=== PATIENT | female | born 1995 | race Caucasian/White ===

== ENCOUNTER 2016-12-02 18:04 | Emergency (ER) | payer OTHER ==
[~2016-12-02] VITALS: Ht 165.1 cm; Wt 60.5 kg
[~2016-12-02 18:04] MED LIST: AMOXICILLIN 8751 TAB PO; B-121000 MCG PO; BIRTH CONTROL; DOXYCYCLINE 10100 MG PO; JOLESSA 30 MCG-1 TAB PO; MYWAY PO; NATURE'S BLE1000 MCG PO; TOPAMAX 100MG100 M1 PO; TOPAMAX200 MG PO
[2016-12-02 18:14] VITALS: BP 135/74; TEMP 98.4
[2016-12-02] MEDS ORDERED: AMITRIPTYLINE H10 M1 PO (18:23)
[2016-12-02] MEDS ORDERED: FIORICET 325 MG1 TA1 PO (18:23)
[2016-12-02 20:40] VITALS: PULSE 65
== END 2016-12-02 20:43 | disposition home or self-care (01) ==
LOC: COL.ER 18:04
DX: G43.909 Migraine, unspecified, not intractable, without status migrainosus (principal)
CPT/HCPCS: J1200; J1885; J2765; J7030

== ENCOUNTER 2016-12-21 02:38 | Emergency (ER) | payer OTHER ==
[~2016-12-21] VITALS: Ht 165.1 cm; Wt 60.0 kg
[~2016-12-21 02:38] MED LIST changes: +AMITRIPTYLINE H10 M1 PO; +FIORICET 325 MG1 TA1 PO
[2016-12-21 02:41] VITALS: TEMP 97.4
[2016-12-21] MEDS ORDERED: ULTRAM 50MG TAB50 MG PO (03:13)
[2016-12-21] MEDS ORDERED: ZOFRAN8 MG PO (03:13)
[2016-12-21 03:52] VITALS: BP 151/61; PULSE 71
== END 2016-12-21 03:52 | disposition home or self-care (01) ==
LOC: COL.ER 02:38
DX: R51 Headache (principal); J06.9 Acute upper respiratory infection, unspecified; R11.0 Nausea; G43.909 Migraine, unspecified, not intractable, without status migrainosus; B34.9 Viral infection, unspecified
CPT/HCPCS: J1885

== ENCOUNTER 2017-03-16 23:35 | Emergency (ER) | payer OTHER ==
[~2017-03-16] VITALS: Ht 165.1 cm; Wt 60.0 kg
[~2017-03-16 23:35] MED LIST changes: +ULTRAM 50MG TAB50 MG PO; +ZOFRAN8 MG PO
[2017-03-16 23:41] VITALS: TEMP 98.1
[2017-03-17 00:47] VITALS: BP 131/65; PULSE 87
== END 2017-03-17 00:48 | disposition home or self-care (01) ==
LOC: COL.ER 23:35
DX: G43.909 Migraine, unspecified, not intractable, without status migrainosus (principal)
CPT/HCPCS: J1200; J1885; J2550; J7030

== ENCOUNTER 2017-06-18 21:11 | Emergency (ER) | payer OTHER ==
[~2017-06-18] VITALS: Ht 165.1 cm; Wt 60.0 kg
[2017-06-18 21:12] VITALS: TEMP 98.6
[2017-06-18] MEDS ORDERED: TROKEN200 PO (21:53)
[2017-06-18] MEDS ORDERED: CAMBIA50 MG PO (21:54)
[2017-06-18 23:11] VITALS: BP 105/52; PULSE 67
== END 2017-06-18 23:11 | disposition home or self-care (01) ==
LOC: COL.ER 21:11
DX: G43.909 Migraine, unspecified, not intractable, without status migrainosus (principal)
CPT/HCPCS: J1200; J1885; J2765; J7030